=== PATIENT | male | born 1940 | race African-American/Black ===

== ENCOUNTER 2019-10-20 10:22 | Emergency (ER) | payer MEDICARE, MEDICAID ==
[~2019-10-20] VITALS: Ht 180.3 cm; Wt 95.0 kg
[~2019-10-20 10:22] MED LIST: ASPI-1079 PO; CARB200C; CARV25TA47 PO; GLIP5TAB12 PO; LISI-186; NIAC500T2 PO; SIMV10TA6
[2019-10-20 10:32] VITALS: BP 229/96
== END 2019-10-20 13:02 | disposition left against medical advice (07) ==
LOC: ER 10:51
DX: R07.89 Other chest pain (principal); I25.10 Atherosclerotic heart disease of native coronary artery without angina pectoris; E11.9 Type 2 diabetes mellitus without complications; Z95.1 Presence of aortocoronary bypass graft; Z79.82 Long term (current) use of aspirin; Z79.01 Long term (current) use of anticoagulants
CPT/HCPCS: 99281

== ENCOUNTER 2022-02-04 08:08 | Inpatient (IN) | payer MEDICARE, MEDICAID ==
[~2022-02-04] VITALS: Ht 175.3 cm; Wt 79.1 kg
[~2022-02-04 08:08] MED LIST changes: -ASPI-1079 PO; +LEVO250T58 MT; -LISI-186; +LOSA25TA3 MT; -NIAC500T2 PO; -SIMV10TA6; +SIMV10TA97
[2022-02-04 09:11] LABS: BASOPHILS % 0.8 % (0.0-2.0); EOSINOPHILS % 1.1 % (0.0-5.0); HEMATOCRIT. 34.6 % (42.0-52.0); HEMOGLOBIN. 11.3 g/dL (14.0-18.0); LYMPHOCYTES % 7.5 % (20.0-50.0); MEAN CORPUSCULAR HEMOGLOBIN 26.3 pg (28.0-32.0); MEAN CORPUSCULAR VOLUME 80.1 fL (80.0-94.0); MEAN PLATELET VOLUME 9.6 fl (7.4-10.4); MONOCYTES % 8.5 % (2.0-8.0); NEUTROPHILS % 82.1 % (40.0-76.0); PLATELET 333 x1000/uL (130-400); RED BLOOD CELL COUNT 4.31 mill/uL (4.7-6.1); RED CELL DISTRIBUTION WIDTH 14.1 % (11.6-14.6)
[2022-02-04] MEDS ORDERED: IBUPROFEN 400MG TABLET PO ONE (09:15)
[2022-02-04] MEDS ORDERED: ACETAMINOPHEN 325MG TABLET PO ONE (09:15)
[2022-02-04 09:17] LABS: CHLORIDE 102 mEq/L (98-107)
[2022-02-04] MEDS ORDERED: FUROSEMIDE 100MG/10ML VIAL IV STA (09:28)
[2022-02-04] MEDS ORDERED: INSULIN REGULAR (HUMULIN R) 300UNITS/3ML VIAL IV STA (09:28)
[2022-02-04] MEDS ORDERED: LACTATED RINGERS 1,000 ML IV STA (09:28)
[2022-02-04] MEDS ORDERED: ALBUTEROL (0.083%) 2.5MG/3ML NEB HHN ONE (09:30)
[2022-02-04] MEDS ORDERED: DEXTROSE 50% WATER 50ML SYRINGE IV ONE (09:30)
[2022-02-04] MEDS ORDERED: ALBUTEROL (0.083%) 2.5MG/3ML NEB ONE (10:55)
[2022-02-04 10:59] LABS: CLARITY URINE CLEAR (CLEAR); COLOR URINE RED (YELLOW); KETONES URINE NEGATIVE (NEGATIVE); LEUKOCYTE ESTERASE URINE 1+ (NEGATIVE); NITRITE URINE NEGATIVE (NEGATIVE); OCCULT BLOOD URINE 3+ (NEGATIVE); PROTEIN URINE 2+ (NEGATIVE); UROBILINOGEN URINE 0.2 E.U./dL (0.2-1.0)
[2022-02-04 11:34] LABS: INR 1.1; PROTHROMBIN TIME 11.5 sec (9.6-11.0)
[2022-02-04] MEDS ORDERED: MORPHINE SULFATE 4 MG/ML CPJ (NOT FOR IM USE) IV ONE (12:00)
[2022-02-04] MEDS ORDERED: SODIUM POLYSTYRENE SULFONATE 15 G/60 ML BOT PO ONE (12:00)
[2022-02-04] MEDS ORDERED: SODIUM BICARBONATE 8.4% 1 MEQ/ML 50ML SYR IV ONE (12:00)
[2022-02-04] MEDS ORDERED: CALCIUM GLUCONATE 1GM PREMIX 50 ML IV ONE (12:00)
[2022-02-04] MEDS ORDERED: LORAZEPAM 0.5MG TABLET PO PRN (13:45)
[2022-02-04] MEDS ORDERED: DIPHENHYDRAMINE 50MG/ML VIAL IV PRN (13:45)
[2022-02-04] MEDS ORDERED: ONDANSETRON HCL 4MG/2ML INJ IV PRN (13:45)
[2022-02-04] MEDS ORDERED: GUAIFENESIN 200MG/10ML SUGAR FREE UDC PO PRN (13:45)
[2022-02-04] MEDS ORDERED: NA PHOS,M-B/NA PHOS,DI-BA ENEMA 118ML PR PRN (13:45)
[2022-02-04] MEDS ORDERED: IPRATROPIUM/ALBUTEROL 0.5-3(2.5)MG/3ML NEB NEB PRN (13:45)
[2022-02-04] MEDS ORDERED: MAGNESIUM/ALUMINUM HYDROXIDE/SIMETHICONE 30ML UDC PO PRN (13:45)
[2022-02-04] MEDS ORDERED: ACETAMINOPHEN 650MG SUPP PR PRN (13:45)
[2022-02-04] MEDS ORDERED: ACETAMINOPHEN 325MG TABLET PO PRN (13:45)
[2022-02-04] MEDS ORDERED: DEXTROSE 50% WATER 50ML SYRINGE IV PRN (13:45)
[2022-02-04] MEDS ORDERED: DOCUSATE SODIUM 100MG CAPSULE PO PRN (13:45)
[2022-02-04] MEDS ORDERED: CEFTRIAXONE 1 G PREMIX 50 ML IV SCH (14:00)
[2022-02-04] MEDS ORDERED: NALOXONE HCL 0.4MG/ML VIAL IV PRN (14:00)
[2022-02-04] MEDS ORDERED: SODIUM BICARBONATE 8.4% 1 MEQ/ML 50ML SYR IV NR (15:45)
[2022-02-04] MEDS ORDERED: INSULIN REGULAR (HUMULIN R) UD 100 UNITS/ML SYR IV NR (16:00)
[2022-02-04] MEDS ORDERED: DEXTROSE 50% WATER 50ML SYRINGE IV NR (16:00)
[2022-02-04] MEDS ORDERED: SODIUM POLYSTYRENE SULFONATE 15 G/60 ML BOT PO NR (16:00)
[2022-02-04] MEDS ORDERED: CALCIUM CHLORIDE 1GM/10ML SYR IV NR (16:00)
[2022-02-04 16:28] VITALS: BP 156/72
[2022-02-04] MEDS ORDERED: ENOXAPARIN 80MG/0.8ML SYR SUBCUT SCH (16:30)
[2022-02-04] MEDS ORDERED: LISI40TA13 PO (16:55)
[2022-02-04 17:07] VITALS: BP 156/72
[2022-02-04] MEDS ORDERED: METF-415 PO (17:24)
[2022-02-04] MEDS ORDERED: METF-414 PO (17:24)
[2022-02-04] MEDS ORDERED: COR12 PO (17:25)
[2022-02-04] MEDS ORDERED: MORP15TA67 PO (17:26)
[2022-02-04] MEDS ORDERED: oxybutynin PO (17:28)
[2022-02-04] MEDS ORDERED: ATOR40TA70 PO (17:29)
[2022-02-04] MEDS ORDERED: NALO25TA4 PO (17:32)
[2022-02-04] MEDS ORDERED: HYDR-4009 PO (17:33)
[2022-02-04] MEDS: SODIUM CHLORIDE 0.9% 1,000 ML IV SCH (18:04)
[2022-02-04] MEDS: BLOOD SUGAR DIAGNOSTIC STRIP TEST SCH ×2 (18:07→20:33)
[2022-02-04] MEDS: INSULIN LISPRO 100 UNITS/ML SUBCUT SCH ×2 (18:07→20:34)
[2022-02-04 20:13] VITALS: BP 188/75
[2022-02-04] MEDS: FAMOTIDINE 20MG TABLET PO SCH (20:46)
[2022-02-04] MEDS: CLONIDINE 0.1MG TABLET PO PRN (20:46)
[2022-02-04] MEDS: HYDROCODONE/ACETAMINOPHEN 5/325MG TABLET PO PRN (22:26)
[2022-02-04 23:51] VITALS: BP 201/82
[2022-02-05] VITALS (21 sets, daily range): BP systolic 127–187; BP diastolic 55–84
[2022-02-05] MEDS ORDERED: METOPROLOL TARTRATE 50MG TABLET PO NR (01:15)
[2022-02-05] MEDS ORDERED: CLONIDINE 0.2MG TABLET PO NR (01:15)
[2022-02-05] MEDS: SODIUM CHLORIDE 0.9% 1,000 ML IV SCH ×2 (03:02→16:40)
[2022-02-05] MEDS: CLONIDINE 0.1MG TABLET PO PRN (03:21)
[2022-02-05] MEDS ORDERED: HYDRALAZINE 20MG/ML VIAL IV NR (04:30)
[2022-02-05] MEDS: BLOOD SUGAR DIAGNOSTIC STRIP TEST SCH ×4 (06:22→21:00)
[2022-02-05] MEDS: INSULIN LISPRO 100 UNITS/ML SUBCUT SCH ×4 (07:50→21:00)
[2022-02-05] MEDS: CEFTRIAXONE 1,000 MG in DEXTROSE 5% WATER 50 ML IV SCH (08:11)
[2022-02-05 08:27] LABS: BASOPHILS % 0.5 % (0.0-2.0); EOSINOPHILS % 1.2 % (0.0-5.0); HEMATOCRIT. 30.3 % (42.0-52.0); LYMPHOCYTES % 7.5 % (20.0-50.0); MEAN CORPUSCULAR HEMOGLOBIN 26.6 pg (28.0-32.0); MEAN CORPUSCULAR VOLUME 80.5 fL (80.0-94.0); MEAN PLATELET VOLUME 10.1 fl (7.4-10.4); NEUTROPHILS % 79.8 % (40.0-76.0); PLATELET 300 x1000/uL (130-400); RED BLOOD CELL COUNT 3.76 mill/uL (4.7-6.1); RED CELL DISTRIBUTION WIDTH 14.4 % (11.6-14.6)
[2022-02-05 08:36] LABS: CHLORIDE 104 mEq/L (98-107)
[2022-02-05] MEDS ORDERED: FENTANYL CITRATE/PF 50MCG/ML 2ML VIAL IV ONE (09:15)
[2022-02-05] MEDS ORDERED: FENTANYL CITRATE/PF 50MCG/ML 2ML VIAL IV SCH (09:30)
[2022-02-05] MEDS ORDERED: SODIUM POLYSTYRENE SULFONATE 15 G/60 ML BOT PO NR (12:00)
[2022-02-05] MEDS: CARVEDILOL 12.5MG TABLET PO SCH ×2 (12:40→21:00)
[2022-02-05] MEDS: FAMOTIDINE 20MG TABLET PO SCH (21:00)
[2022-02-06] VITALS (9 sets, daily range): BP systolic 148–188; BP diastolic 70–84
[2022-02-06] MEDS: CLONIDINE 0.1MG TABLET PO PRN ×4 (06:43→21:41)
[2022-02-06] MEDS: BLOOD SUGAR DIAGNOSTIC STRIP TEST SCH ×4 (06:43→21:00)
[2022-02-06] MEDS: SODIUM CHLORIDE 0.9% 1,000 ML IV SCH ×2 (06:43→21:44)
[2022-02-06] MEDS: INSULIN LISPRO 100 UNITS/ML SUBCUT SCH ×4 (07:50→21:00)
[2022-02-06] MEDS: CEFTRIAXONE 1,000 MG in DEXTROSE 5% WATER 50 ML IV SCH (08:07)
[2022-02-06] MEDS: CARVEDILOL 12.5MG TABLET PO SCH ×2 (08:07→21:40)
[2022-02-06 08:38] LABS: BASOPHILS % 0.6 % (0.0-2.0); EOSINOPHILS % 0.6 % (0.0-5.0); HEMATOCRIT. 30.6 % (42.0-52.0); HEMOGLOBIN. 10.1 g/dL (14.0-18.0); LYMPHOCYTES % 8.3 % (20.0-50.0); MEAN PLATELET VOLUME 9.9 fl (7.4-10.4); MONOCYTES % 8.7 % (2.0-8.0); NEUTROPHILS % 81.8 % (40.0-76.0); PLATELET 303 x1000/uL (130-400); RED BLOOD CELL COUNT 3.74 mill/uL (4.7-6.1); RED CELL DISTRIBUTION WIDTH 14.4 % (11.6-14.6)
[2022-02-06] MEDS: MORPHINE SULFATE 2 MG/ML CPJ (NOT FOR IM USE) IV PRN ×2 (10:41→21:41)
[2022-02-06] MEDS ORDERED: LIDOCAINE HCL 1% 20ML VIAL (Pyxis) INJ ONE (13:25)
[2022-02-06] MEDS: FAMOTIDINE 20MG TABLET PO SCH (21:40)
[2022-02-07] VITALS: BP 153/61
[2022-02-07 04:00] VITALS: BP 154/68
[2022-02-07] MEDS: BLOOD SUGAR DIAGNOSTIC STRIP TEST SCH ×4 (06:27→21:00)
[2022-02-07 06:53] LABS: BASOPHILS % 0.5 % (0.0-2.0); EOSINOPHILS % 1.8 % (0.0-5.0); HEMATOCRIT. 28.6 % (42.0-52.0); HEMOGLOBIN. 9.5 g/dL (14.0-18.0); LYMPHOCYTES % 9.2 % (20.0-50.0); MEAN CORPUSCULAR HEMOGLOBIN 27.2 pg (28.0-32.0); MEAN CORPUSCULAR VOLUME 82.1 fL (80.0-94.0); NEUTROPHILS % 79.5 % (40.0-76.0); PLATELET 295 x1000/uL (130-400); RED BLOOD CELL COUNT 3.49 mill/uL (4.7-6.1); RED CELL DISTRIBUTION WIDTH 14.4 % (11.6-14.6)
[2022-02-07] MEDS: INSULIN LISPRO 100 UNITS/ML SUBCUT SCH ×4 (07:31→21:00)
[2022-02-07 08:00] VITALS: BP 170/64
[2022-02-07] MEDS: CARVEDILOL 12.5MG TABLET PO SCH ×2 (09:49→20:24)
[2022-02-07] MEDS: CEFTRIAXONE 1,000 MG in DEXTROSE 5% WATER 50 ML IV SCH (10:46)
[2022-02-07] MEDS: MORPHINE SULFATE 2 MG/ML CPJ (NOT FOR IM USE) IV PRN ×2 (10:46→20:08)
[2022-02-07] MEDS: SODIUM CHLORIDE 0.9% 1,000 ML IV SCH ×2 (10:47→20:26)
[2022-02-07 12:00] VITALS: BP 163/66
[2022-02-07] MEDS: HYDROCODONE/ACETAMINOPHEN 5/325MG TABLET PO PRN ×2 (15:02→23:43)
[2022-02-07] MEDS ORDERED: LEVO250T58 MT (15:31)
[2022-02-07 16:00] VITALS: BP 148/61
[2022-02-07 20:00] VITALS: BP 158/88
[2022-02-07] MEDS: FAMOTIDINE 20MG TABLET PO SCH (20:24)
[2022-02-08] VITALS: BP 178/80
[2022-02-08] MEDS: CLONIDINE 0.1MG TABLET PO PRN ×2 (00:15→08:24)
[2022-02-08 04:00] VITALS: BP 156/82
[2022-02-08] MEDS: BLOOD SUGAR DIAGNOSTIC STRIP TEST SCH ×3 (06:22→17:39)
[2022-02-08] MEDS: INSULIN LISPRO 100 UNITS/ML SUBCUT SCH ×3 (06:22→17:56)
[2022-02-08 08:12] VITALS: BP 195/77
[2022-02-08] MEDS: CARVEDILOL 12.5MG TABLET PO SCH (08:24)
[2022-02-08] MEDS: CEFTRIAXONE 1,000 MG in DEXTROSE 5% WATER 50 ML IV SCH (08:25)
[2022-02-08 08:39] LABS: BASOPHILS % 0.5 % (0.0-2.0); HEMATOCRIT. 30.6 % (42.0-52.0); HEMOGLOBIN. 9.8 g/dL (14.0-18.0); LYMPHOCYTES % 8.4 % (20.0-50.0); MEAN CORPUSCULAR HEMOGLOBIN 26.3 pg (28.0-32.0); MEAN CORPUSCULAR VOLUME 82.3 fL (80.0-94.0); MEAN PLATELET VOLUME 10.2 fl (7.4-10.4); MONOCYTES % 8.9 % (2.0-8.0); NEUTROPHILS % 80.2 % (40.0-76.0); PLATELET 290 x1000/uL (130-400); RED BLOOD CELL COUNT 3.72 mill/uL (4.7-6.1); RED CELL DISTRIBUTION WIDTH 14.5 % (11.6-14.6)
[2022-02-08] MEDS ORDERED: HYDR-4135 MT (10:43)
[2022-02-08] MEDS ORDERED: HYDRALAZINE 20MG/ML VIAL IV SCH (10:45)
[2022-02-08] MEDS ORDERED: POTASSIUM CHLORIDE 20MEQ TABLET SR PO SCH (10:45)
[2022-02-08] MEDS: SODIUM CHLORIDE 0.9% 1,000 ML IV SCH (11:20)
[2022-02-08 11:33] VITALS: BP 178/75
[2022-02-08] MEDS: HYDROCODONE/ACETAMINOPHEN 5/325MG TABLET PO PRN (11:37)
[2022-02-08 16:00] VITALS: BP 131/49
[2022-02-08 18:29] VITALS: BP 131/49
== END 2022-02-08 19:30 | disposition home health service (06) | DRG 689 ==
LOC: ER 08:25 → ENRESERV 12:15 → 6WST 16:37
PROVIDERS: ADMIT Internal Medicine; ATTEND Internal Medicine
PROC: 0T9130Z Drainage of Left Kidney with Drainage Device, Percutaneous Approach (ICD-10-PCS; principal; 2022-02-05)
PROC: 0T9330Z Drainage of Right Kidney Pelvis with Drainage Device, Percutaneous Approach (ICD-10-PCS; 2022-02-05)
PROC: 06H03DZ Insertion of Intraluminal Device into Inferior Vena Cava, Percutaneous Approach (ICD-10-PCS; 2022-02-06)
DX: N13.6 Pyonephrosis (principal); E43 Unspecified severe protein-calorie malnutrition; I13.0 Hypertensive heart and chronic kidney disease with heart failure and stage 1 through stage 4 chronic kidney disease, or unspecified chronic kidney disease; I82.412 Acute embolism and thrombosis of left femoral vein; N17.9 Acute kidney failure, unspecified; E11.22 Type 2 diabetes mellitus with diabetic chronic kidney disease; N18.31 Chronic kidney disease, stage 3a; E87.6 Hypokalemia; D64.9 Anemia, unspecified; Z20.822 Contact with and (suspected) exposure to COVID-19; E87.5 Hyperkalemia; I25.10 Atherosclerotic heart disease of native coronary artery without angina pectoris; I50.9 Heart failure, unspecified; Z85.51 Personal history of malignant neoplasm of bladder; Z85.46 Personal history of malignant neoplasm of prostate; Z79.84 Long term (current) use of oral hypoglycemic drugs; Z79.899 Other long term (current) drug therapy; Z95.1 Presence of aortocoronary bypass graft; Z92.3 Personal history of irradiation; Z85.118 Personal history of other malignant neoplasm of bronchus and lung; R91.1 Solitary pulmonary nodule; R31.9 Hematuria, unspecified; Z68.25 Body mass index [BMI] 25.0-25.9, adult
CPT/HCPCS: 36415; 37191; 50432; 71045; 74176; 78582; 80048; 80053; 80061; 81003; 82962; 84132; 84153; 84443; 84484; 85025; 85379; 86850; 86900; 87426; 93005; 93306; 93970; 94644; 97162; 99152; 99153; 99285; A9558; C1729; C1769; C1880; C1893; J0360; J0610; J0696; J1644; J1815; J1940; J2270; J3010; J3490; J7060; L8514; A4315; G0103; G0500

== ENCOUNTER 2022-02-10 09:10 | Inpatient (IN) | payer MEDICARE, MEDICAID ==
[~2022-02-10] VITALS: Ht 175.3 cm; Wt 72.6 kg
[~2022-02-10 09:10] MED LIST changes: +ATOR40TA70 PO; -CARB200C; -CARV25TA47 PO; +COR12 PO; +HYDR-4009 PO; +HYDR-4135 MT; -LOSA25TA3 MT; +METF-414 PO; +MORP15TA67 PO; +NALO25TA4 PO; -SIMV10TA97; +oxybutynin PO
[2022-02-10] MEDS ORDERED: MORPHINE SULFATE 4 MG/ML CPJ (NOT FOR IM USE) IV STA (10:16)
[2022-02-10 10:59] LABS: CHLORIDE 113 mEq/L (98-107)
[2022-02-10 11:04] LABS: BASOPHILS % 0.3 % (0.0-2.0); EOSINOPHILS % 0.3 % (0.0-5.0); HEMATOCRIT. 28.6 % (42.0-52.0); HEMOGLOBIN. 9.4 g/dL (14.0-18.0); LYMPHOCYTES % 7.6 % (20.0-50.0); MEAN CORPUSCULAR VOLUME 82.2 fL (80.0-94.0); MEAN PLATELET VOLUME 9.9 fl (7.4-10.4); MONOCYTES % 9.2 % (2.0-8.0); NEUTROPHILS % 82.6 % (40.0-76.0); PLATELET 265 x1000/uL (130-400); RED BLOOD CELL COUNT 3.48 mill/uL (4.7-6.1); RED CELL DISTRIBUTION WIDTH 14.4 % (11.6-14.6)
[2022-02-10] MEDS ORDERED: MAGNESIUM/ALUMINUM HYDROXIDE/SIMETHICONE 30ML UDC PO PRN (13:00)
[2022-02-10] MEDS ORDERED: LORAZEPAM 0.5MG TABLET PO PRN (13:00)
[2022-02-10] MEDS ORDERED: NA PHOS,M-B/NA PHOS,DI-BA ENEMA 118ML PR PRN (13:00)
[2022-02-10] MEDS ORDERED: ONDANSETRON HCL 4MG/2ML INJ IV PRN (13:00)
[2022-02-10] MEDS ORDERED: IPRATROPIUM/ALBUTEROL 0.5-3(2.5)MG/3ML NEB NEB PRN (13:00)
[2022-02-10] MEDS ORDERED: GUAIFENESIN 200MG/10ML SUGAR FREE UDC PO PRN (13:00)
[2022-02-10] MEDS ORDERED: DIPHENHYDRAMINE 50MG/ML VIAL IV PRN (13:00)
[2022-02-10] MEDS ORDERED: ACETAMINOPHEN 650MG SUPP PR PRN (13:00)
[2022-02-10] MEDS: KCL 20MEQ/100ML PREMIX 100 ML IV SCH ×2 (13:18→16:59)
[2022-02-10] MEDS ORDERED: CEFTRIAXONE 1 G PREMIX 50 ML IV SCH (14:00)
[2022-02-10] MEDS: DEXT 5%/0.45% NACL 1000ML 1,000 ML IV SCH (14:32)
[2022-02-10] MEDS ORDERED: POTASSIUM CHLORIDE 20MEQ TABLET SR PO SCH (16:00)
[2022-02-10] MEDS ORDERED: MAGNESIUM 2 G PREMIX 50 ML IV NR (17:00)
[2022-02-10] MEDS: CLONIDINE 0.1MG TABLET PO PRN ×2 (19:05→20:52)
[2022-02-10] MEDS: MORPHINE SULFATE 2 MG/ML CPJ (NOT FOR IM USE) IV PRN (19:06)
[2022-02-10] MEDS ORDERED: NALOXONE HCL 0.4MG/ML VIAL IV PRN (20:45)
[2022-02-10 22:00] VITALS: BP 157/61
[2022-02-10] MEDS: FAMOTIDINE 20MG TABLET PO SCH (22:24)
[2022-02-10] MEDS: HYDROCODONE/ACETAMINOPHEN 10/325MG TABLET PO PRN (22:25)
[2022-02-11] VITALS: BP 148/55
[2022-02-11 04:00] VITALS: BP 152/50
[2022-02-11 04:03] LABS: CLARITY URINE CLEAR (CLEAR); COLOR URINE YELLOW (YELLOW); KETONES URINE NEGATIVE (NEGATIVE); LEUKOCYTE ESTERASE URINE 1+ (NEGATIVE); NITRITE URINE NEGATIVE (NEGATIVE); OCCULT BLOOD URINE 2+ (NEGATIVE); PROTEIN URINE 2+ (NEGATIVE); SPECIFIC GRAVITY URINE 1.015 (1.005-1.030); UROBILINOGEN URINE 0.2 E.U./dL (0.2-1.0)
[2022-02-11] MEDS: DEXT 5%/0.45% NACL 1000ML 1,000 ML IV SCH (06:15)
[2022-02-11] MEDS: HYDROCODONE/ACETAMINOPHEN 10/325MG TABLET PO PRN ×2 (06:24→10:42)
[2022-02-11 08:00] VITALS: BP 125/59
[2022-02-11] MEDS: CEFTRIAXONE 1,000 MG in DEXTROSE 5% WATER 50 ML IV SCH (10:42)
[2022-02-11 10:44] LABS: HEMATOCRIT. 31.6 % (42.0-52.0); HEMOGLOBIN. 10.2 g/dL (14.0-18.0); MEAN CORPUSCULAR HEMOGLOBIN 26.4 pg (28.0-32.0); MEAN CORPUSCULAR VOLUME 82.2 fL (80.0-94.0); MEAN PLATELET VOLUME 10.6 fl (7.4-10.4); PLATELET 340 x1000/uL (130-400); RED BLOOD CELL COUNT 3.85 mill/uL (4.7-6.1); RED CELL DISTRIBUTION WIDTH 14.6 % (11.6-14.6)
[2022-02-11 10:46] LABS: CHLORIDE 104 mEq/L (98-107)
[2022-02-11 12:00] VITALS: BP 129/62
[2022-02-11 15:53] LABS: PLATELET ESTIMATE NORMAL
[2022-02-11 16:00] VITALS: BP 158/62
[2022-02-11] MEDS: MORPHINE SULFATE 2 MG/ML CPJ (NOT FOR IM USE) IV PRN (16:58)
[2022-02-11 20:00] VITALS: BP 183/77
[2022-02-11] MEDS: FAMOTIDINE 20MG TABLET PO SCH (21:07)
[2022-02-11] MEDS: CLONIDINE 0.1MG TABLET PO PRN (21:08)
[2022-02-12] VITALS (7 sets, daily range): BP systolic 128–162; BP diastolic 49–79
[2022-02-12] MEDS: MORPHINE SULFATE 4 MG/ML CPJ (NOT FOR IM USE) IV PRN ×3 (01:03→11:25)
[2022-02-12] MEDS: DEXT 5%/0.45% NACL 1000ML 1,000 ML IV SCH (04:28)
[2022-02-12] MEDS: CLONIDINE 0.1MG TABLET PO PRN (05:36)
[2022-02-12 07:19] LABS: BASOPHILS % 0.4 % (0.0-2.0); EOSINOPHILS % 1.3 % (0.0-5.0); HEMATOCRIT. 29.5 % (42.0-52.0); HEMOGLOBIN. 9.7 g/dL (14.0-18.0); LYMPHOCYTES % 8.2 % (20.0-50.0); MEAN CORPUSCULAR HEMOGLOBIN 26.7 pg (28.0-32.0); MEAN CORPUSCULAR VOLUME 81.3 fL (80.0-94.0); MEAN PLATELET VOLUME 10.5 fl (7.4-10.4); MONOCYTES % 9.8 % (2.0-8.0); NEUTROPHILS % 80.3 % (40.0-76.0); PLATELET 309 x1000/uL (130-400); RED BLOOD CELL COUNT 3.63 mill/uL (4.7-6.1); RED CELL DISTRIBUTION WIDTH 14.7 % (11.6-14.6)
[2022-02-12] MEDS: CEFTRIAXONE 1,000 MG in DEXTROSE 5% WATER 50 ML IV SCH (11:25)
[2022-02-12] MEDS: MORPHINE SULFATE 15MG TABLET SR PO SCH ×2 (13:55→21:21)
[2022-02-12] MEDS: GABAPENTIN 100MG CAPSULE PO SCH ×2 (13:55→21:20)
[2022-02-12] MEDS: FAMOTIDINE 20MG TABLET PO SCH (21:20)
[2022-02-13] VITALS: BP 132/50
[2022-02-13] MEDS: DEXT 5%/0.45% NACL 1000ML 1,000 ML IV SCH ×2 (00:35→08:29)
[2022-02-13 03:59] VITALS: BP 147/59
[2022-02-13] MEDS: MORPHINE SULFATE 15MG TABLET SR PO SCH ×3 (05:12→22:07)
[2022-02-13] MEDS: GABAPENTIN 100MG CAPSULE PO SCH ×3 (05:13→22:07)
[2022-02-13 08:00] VITALS: BP 138/76
[2022-02-13] MEDS: MORPHINE SULFATE 4 MG/ML CPJ (NOT FOR IM USE) IV PRN (08:33)
[2022-02-13] MEDS: CEFTRIAXONE 1,000 MG in DEXTROSE 5% WATER 50 ML IV SCH (11:34)
[2022-02-13 12:00] VITALS: BP 119/59
[2022-02-13] MEDS: HYDROCODONE/ACETAMINOPHEN 10/325MG TABLET PO PRN (12:10)
[2022-02-13] MEDS ORDERED: LACTULOSE 20G/30ML UDC PO NR (15:45)
[2022-02-13 16:00] VITALS: BP 143/68
[2022-02-13 20:00] VITALS: BP 169/73
[2022-02-13] MEDS: FAMOTIDINE 20MG TABLET PO SCH (22:07)
[2022-02-13] MEDS: CLONIDINE 0.1MG TABLET PO PRN (22:13)
[2022-02-14] MEDS: DEXT 5%/0.45% NACL 1000ML 1,000 ML IV SCH (03:57)
[2022-02-14] MEDS: CLONIDINE 0.1MG TABLET PO PRN (04:48)
[2022-02-14] MEDS: GABAPENTIN 100MG CAPSULE PO SCH ×3 (06:15→21:05)
[2022-02-14] MEDS: MORPHINE SULFATE 15MG TABLET SR PO SCH ×3 (06:17→21:07)
[2022-02-14 08:00] VITALS: BP 125/60
[2022-02-14] MEDS: CEFTRIAXONE 1,000 MG in DEXTROSE 5% WATER 50 ML IV SCH (10:29)
[2022-02-14 12:00] VITALS: BP 134/56
[2022-02-14] MEDS: HYDROCODONE/ACETAMINOPHEN 10/325MG TABLET PO PRN ×2 (12:49→17:25)
[2022-02-14] MEDS ORDERED: LACTULOSE 20G/30ML UDC PO NR (13:00)
[2022-02-14] MEDS ORDERED: LINEZOLID 600MG TABLET PO SCH (14:00)
[2022-02-14 16:00] VITALS: BP 119/53
[2022-02-14 20:00] VITALS: BP 123/68
[2022-02-14] MEDS: FAMOTIDINE 20MG TABLET PO SCH (21:05)
[2022-02-14] MEDS: LINEZOLID 600MG TABLET PO SCH (21:06)
[2022-02-14 21:35] LABS: HEMATOCRIT 28.4 % (42.0-52.0); HEMOGLOBIN 9.2 g/dL (14.0-18.0); MEAN CORPUSCULAR HEMOGLOBIN 26.7 pg (28.0-32.0); MEAN CORPUSCULAR VOLUME 82.5 fL (80.0-94.0); PLATELET 259 x1000/uL (130-400); RED BLOOD CELL COUNT 3.44 mill/uL (4.7-6.1); RED CELL DISTRIBUTION WIDTH 14.3 % (11.6-14.6)
[2022-02-14 21:43] LABS: CHLORIDE 103 mEq/L (98-107)
[2022-02-15] VITALS: BP_SYST 125; BP_SYST 153; BP_DIAS 59; BP_DIAS 69
[2022-02-15] MEDS: HYDROCODONE/ACETAMINOPHEN 10/325MG TABLET PO PRN (01:38)
[2022-02-15] MEDS: MORPHINE SULFATE 4 MG/ML CPJ (NOT FOR IM USE) IV PRN (03:08)
[2022-02-15] MEDS: CLONIDINE 0.1MG TABLET PO PRN (03:08)
[2022-02-15 03:46] VITALS: BP 184/87
[2022-02-15] MEDS: MORPHINE SULFATE 15MG TABLET SR PO SCH ×3 (06:15→22:00)
[2022-02-15] MEDS: GABAPENTIN 100MG CAPSULE PO SCH ×3 (06:15→22:09)
[2022-02-15 08:00] VITALS: BP 154/97
[2022-02-15] MEDS: LINEZOLID 600MG TABLET PO SCH ×2 (08:59→21:03)
[2022-02-15] MEDS: ACETAMINOPHEN 325MG TABLET PO PRN ×2 (08:59→10:02)
[2022-02-15 12:00] VITALS: BP 114/61
[2022-02-15 13:08] LABS: HEMOGLOBIN. 9.1 g/dL (14.0-18.0); MEAN CORPUSCULAR HEMOGLOBIN 26.6 pg (28.0-32.0); MEAN CORPUSCULAR VOLUME 81.7 fL (80.0-94.0); MEAN PLATELET VOLUME 10.5 fl (7.4-10.4); PLATELET 269 x1000/uL (130-400); RED BLOOD CELL COUNT 3.43 mill/uL (4.7-6.1); RED CELL DISTRIBUTION WIDTH 14.3 % (11.6-14.6)
[2022-02-15 13:13] LABS: CHLORIDE 102 mEq/L (98-107)
[2022-02-15 14:08] LABS: PLATELET ESTIMATE NORMAL
[2022-02-15 16:00] VITALS: BP 114/58
[2022-02-15 20:00] VITALS: BP 141/52
[2022-02-15] MEDS: FAMOTIDINE 20MG TABLET PO SCH (21:03)
[2022-02-15] MEDS: PIPERACILLIN/TAZOBACTAM 3.375 G in DEXTROSE 5% WATER 50 ML IV SCH (22:10)
[2022-02-16] VITALS: BP 129/59
[2022-02-16 04:00] VITALS: BP 141/58
[2022-02-16] MEDS: MORPHINE SULFATE 15MG TABLET SR PO SCH ×3 (06:00→21:00)
[2022-02-16] MEDS: GABAPENTIN 100MG CAPSULE PO SCH ×3 (06:00→21:00)
[2022-02-16 06:11] LABS: BASOPHILS % 0.4 % (0.0-2.0); EOSINOPHILS % 1.3 % (0.0-5.0); HEMATOCRIT. 27.7 % (42.0-52.0); HEMOGLOBIN. 9.1 g/dL (14.0-18.0); LYMPHOCYTES % 7.9 % (20.0-50.0); MEAN CORPUSCULAR HEMOGLOBIN 26.6 pg (28.0-32.0); MEAN CORPUSCULAR VOLUME 80.8 fL (80.0-94.0); MEAN PLATELET VOLUME 10.9 fl (7.4-10.4); MONOCYTES % 8.5 % (2.0-8.0); NEUTROPHILS % 81.9 % (40.0-76.0); PLATELET 285 x1000/uL (130-400); RED BLOOD CELL COUNT 3.43 mill/uL (4.7-6.1); RED CELL DISTRIBUTION WIDTH 14.6 % (11.6-14.6)
[2022-02-16 06:16] LABS: CHLORIDE 102 mEq/L (98-107)
[2022-02-16] MEDS: PIPERACILLIN/TAZOBACTAM 3.375 G in DEXTROSE 5% WATER 50 ML IV SCH ×3 (07:05→21:00)
[2022-02-16] MEDS: MORPHINE SULFATE 4 MG/ML CPJ (NOT FOR IM USE) IV PRN ×2 (07:10→12:29)
[2022-02-16 08:00] VITALS: BP 139/67
[2022-02-16] MEDS: LINEZOLID 600MG TABLET PO SCH ×2 (08:49→21:00)
[2022-02-16] MEDS ORDERED: NALOXONE HCL 0.4MG/ML VIAL IV PRN (09:45)
[2022-02-16 12:00] VITALS: BP 148/73
[2022-02-16] MEDS: CLONIDINE 0.1MG TABLET PO PRN (14:45)
[2022-02-16 16:00] VITALS: BP 168/98
[2022-02-16] MEDS: HYDROCODONE/ACETAMINOPHEN 10/325MG TABLET PO PRN (16:43)
[2022-02-16 20:00] VITALS: BP 118/58
[2022-02-16] MEDS: FAMOTIDINE 20MG TABLET PO SCH (21:00)
[2022-02-17] VITALS: BP 114/55
[2022-02-17 04:00] VITALS: BP 134/57
[2022-02-17] MEDS: PIPERACILLIN/TAZOBACTAM 3.375 G in DEXTROSE 5% WATER 50 ML IV SCH ×3 (05:00→21:34)
[2022-02-17] MEDS: GABAPENTIN 100MG CAPSULE PO SCH ×3 (05:00→21:34)
[2022-02-17] MEDS: MORPHINE SULFATE 15MG TABLET SR PO SCH ×3 (05:01→21:35)
[2022-02-17 07:34] LABS: BASOPHILS % 0.8 % (0.0-2.0); EOSINOPHILS % 1.8 % (0.0-5.0); HEMATOCRIT. 25.9 % (42.0-52.0); HEMOGLOBIN. 8.8 g/dL (14.0-18.0); LYMPHOCYTES % 10.1 % (20.0-50.0); MEAN CORPUSCULAR HEMOGLOBIN 27.7 pg (28.0-32.0); MEAN CORPUSCULAR VOLUME 81.3 fL (80.0-94.0); MEAN PLATELET VOLUME 10.9 fl (7.4-10.4); MONOCYTES % 10.5 % (2.0-8.0); NEUTROPHILS % 76.8 % (40.0-76.0); PLATELET 268 x1000/uL (130-400); RED BLOOD CELL COUNT 3.19 mill/uL (4.7-6.1); RED CELL DISTRIBUTION WIDTH 14.4 % (11.6-14.6)
[2022-02-17 08:00] VITALS: BP 145/60
[2022-02-17 08:01] LABS: CHLORIDE 102 mEq/L (98-107)
[2022-02-17] MEDS: LINEZOLID 600MG TABLET PO SCH ×2 (08:51→21:34)
[2022-02-17] MEDS: MORPHINE SULFATE 4 MG/ML CPJ (NOT FOR IM USE) IV PRN (09:18)
[2022-02-17 12:00] VITALS: BP 140/52
[2022-02-17] MEDS ORDERED: LACTULOSE 20G/30ML UDC PO NR (15:30)
[2022-02-17 16:00] VITALS: BP 147/63
[2022-02-17] MEDS: HYDROCODONE/ACETAMINOPHEN 10/325MG TABLET PO PRN (17:42)
[2022-02-17 20:00] VITALS: BP 144/84
[2022-02-17] MEDS: FAMOTIDINE 20MG TABLET PO SCH (21:34)
[2022-02-18 00:01] VITALS: BP 111/67
[2022-02-18] MEDS: HYDROCODONE/ACETAMINOPHEN 10/325MG TABLET PO PRN ×2 (03:37→18:22)
[2022-02-18 04:00] VITALS: BP 156/63
[2022-02-18] MEDS: GABAPENTIN 100MG CAPSULE PO SCH ×3 (05:04→22:20)
[2022-02-18] MEDS: PIPERACILLIN/TAZOBACTAM 3.375 G in DEXTROSE 5% WATER 50 ML IV SCH ×3 (05:04→22:21)
[2022-02-18] MEDS: MORPHINE SULFATE 15MG TABLET SR PO SCH ×3 (05:05→22:20)
[2022-02-18 08:00] VITALS: BP 157/61
[2022-02-18] MEDS: LINEZOLID 600MG TABLET PO SCH ×2 (09:10→22:54)
[2022-02-18 12:00] VITALS: BP 151/60
[2022-02-18 16:00] VITALS: BP 154/70
[2022-02-18 20:00] VITALS: BP 105/57
[2022-02-18] MEDS: FAMOTIDINE 20MG TABLET PO SCH (21:18)
[2022-02-19 00:05] VITALS: BP 135/61
[2022-02-19 04:00] VITALS: BP 138/57
[2022-02-19] MEDS: PIPERACILLIN/TAZOBACTAM 3.375 G in DEXTROSE 5% WATER 50 ML IV SCH ×3 (05:09→21:29)
[2022-02-19] MEDS: GABAPENTIN 100MG CAPSULE PO SCH ×3 (05:09→21:29)
[2022-02-19] MEDS: MORPHINE SULFATE 15MG TABLET SR PO SCH ×3 (05:09→21:30)
[2022-02-19 08:00] VITALS: BP_SYST 153; BP_SYST 159; BP_DIAS 61; BP_DIAS 64
[2022-02-19] MEDS: LINEZOLID 600MG TABLET PO SCH ×2 (09:04→21:29)
[2022-02-19] MEDS: MORPHINE SULFATE 4 MG/ML CPJ (NOT FOR IM USE) IV PRN ×2 (09:11→17:33)
[2022-02-19 16:10] VITALS: BP 162/70
[2022-02-19 20:00] VITALS: BP 156/64
[2022-02-19] MEDS: FAMOTIDINE 20MG TABLET PO SCH (21:29)
[2022-02-20] VITALS: BP 144/63
[2022-02-20 04:00] VITALS: BP 149/66
[2022-02-20] MEDS: PIPERACILLIN/TAZOBACTAM 3.375 G in DEXTROSE 5% WATER 50 ML IV SCH ×3 (05:23→23:02)
[2022-02-20] MEDS: MORPHINE SULFATE 15MG TABLET SR PO SCH ×3 (05:24→23:02)
[2022-02-20] MEDS: GABAPENTIN 100MG CAPSULE PO SCH ×3 (05:24→23:02)
[2022-02-20 07:03] LABS: HEMATOCRIT 27.9 % (42.0-52.0); HEMOGLOBIN 9.4 g/dL (14.0-18.0); MEAN CORPUSCULAR HEMOGLOBIN 27.2 pg (28.0-32.0); PLATELET 303 x1000/uL (130-400); RED BLOOD CELL COUNT 3.44 mill/uL (4.7-6.1); RED CELL DISTRIBUTION WIDTH 14.4 % (11.6-14.6)
[2022-02-20 08:00] VITALS: BP 155/75
[2022-02-20] MEDS: MORPHINE SULFATE 4 MG/ML CPJ (NOT FOR IM USE) IV PRN (08:04)
[2022-02-20 08:05] LABS: CHLORIDE 102 mEq/L (98-107)
[2022-02-20 12:00] VITALS: BP 128/58
[2022-02-20 16:13] VITALS: BP 156/76
[2022-02-20] MEDS: HYDROCODONE/ACETAMINOPHEN 10/325MG TABLET PO PRN (16:52)
[2022-02-20 20:00] VITALS: BP 159/64
[2022-02-20] MEDS: FAMOTIDINE 20MG TABLET PO SCH (23:02)
[2022-02-21] VITALS: BP 145/67
[2022-02-21 04:00] VITALS: BP 174/76
[2022-02-21] MEDS: GABAPENTIN 100MG CAPSULE PO SCH ×3 (07:04→21:46)
[2022-02-21] MEDS: MORPHINE SULFATE 15MG TABLET SR PO SCH ×4 (07:04→21:48)
[2022-02-21 08:00] VITALS: BP 165/77
[2022-02-21] MEDS: HYDROCODONE/ACETAMINOPHEN 10/325MG TABLET PO PRN (08:57)
[2022-02-21 12:00] VITALS: BP 122/55
[2022-02-21 16:00] VITALS: BP 159/87
[2022-02-21 20:00] VITALS: BP 168/77
[2022-02-21] MEDS: FAMOTIDINE 20MG TABLET PO SCH (21:46)
[2022-02-21] MEDS: CLONIDINE 0.1MG TABLET PO PRN (21:52)
[2022-02-22] VITALS (7 sets, daily range): BP systolic 132–170; BP diastolic 62–80
[2022-02-22] MEDS: GABAPENTIN 100MG CAPSULE PO SCH ×3 (05:17→21:53)
[2022-02-22] MEDS: HYDROCODONE/ACETAMINOPHEN 10/325MG TABLET PO PRN ×3 (05:31→23:32)
[2022-02-22] MEDS: CLONIDINE 0.1MG TABLET PO PRN ×2 (05:53→23:32)
[2022-02-22] MEDS: MORPHINE SULFATE 15MG TABLET SR PO SCH ×2 (13:44→21:53)
[2022-02-22 16:32] LABS: BASOPHILS % 1.4 % (0.0-2.0); EOSINOPHILS % 1.8 % (0.0-5.0); HEMATOCRIT. 29.2 % (42.0-52.0); HEMOGLOBIN. 9.8 g/dL (14.0-18.0); LYMPHOCYTES % 12.2 % (20.0-50.0); MEAN CORPUSCULAR HEMOGLOBIN 27.1 pg (28.0-32.0); MEAN CORPUSCULAR VOLUME 80.4 fL (80.0-94.0); MEAN PLATELET VOLUME 9.7 fl (7.4-10.4); MONOCYTES % 8.7 % (2.0-8.0); NEUTROPHILS % 75.9 % (40.0-76.0); PLATELET 293 x1000/uL (130-400); RED BLOOD CELL COUNT 3.63 mill/uL (4.7-6.1); RED CELL DISTRIBUTION WIDTH 14.8 % (11.6-14.6)
[2022-02-22 17:00] LABS: CHLORIDE 100 mEq/L (98-107)
[2022-02-22] MEDS: METRONIDAZOLE 500MG TABLET PO SCH (21:49)
[2022-02-22] MEDS: FAMOTIDINE 20MG TABLET PO SCH (21:49)
[2022-02-23] MEDS: MORPHINE SULFATE 4 MG/ML CPJ (NOT FOR IM USE) IV PRN (02:28)
[2022-02-23 04:00] VITALS: BP 152/75
[2022-02-23] MEDS: METRONIDAZOLE 500MG TABLET PO SCH ×2 (06:59→14:56)
[2022-02-23] MEDS: MORPHINE SULFATE 15MG TABLET SR PO SCH ×2 (07:00→14:56)
[2022-02-23] MEDS: GABAPENTIN 100MG CAPSULE PO SCH ×2 (07:01→14:56)
[2022-02-23 08:00] VITALS: BP 116/77
[2022-02-23] MEDS: ACETAMINOPHEN 325MG TABLET PO PRN ×2 (09:01→18:03)
[2022-02-23 12:00] VITALS: BP 142/76
[2022-02-23] MEDS ORDERED: SODIUM CHLORIDE 0.9% 1,000 ML IV SCH (15:15)
[2022-02-23 16:00] VITALS: BP 150/71
[2022-02-23] MEDS ORDERED: VANCOMYCIN 1000MG/20ML ORAL SOLN PO SCH (18:00)
== END 2022-02-23 20:17 | DRG 947 ==
LOC: ER 09:34 → EDBEDREQ 14:43 → MICUSO 15:07 → 7EST 20:29 → 6EST 02-20 10:37
PROVIDERS: ADMIT Internal Medicine; ATTEND Internal Medicine
DX: G89.3 Neoplasm related pain (acute) (chronic) (principal); E43 Unspecified severe protein-calorie malnutrition; N17.9 Acute kidney failure, unspecified; N39.0 Urinary tract infection, site not specified; I11.0 Hypertensive heart disease with heart failure; D64.9 Anemia, unspecified; E86.0 Dehydration; D72.829 Elevated white blood cell count, unspecified; E11.9 Type 2 diabetes mellitus without complications; R74.01 Elevation of levels of liver transaminase levels; Z20.822 Contact with and (suspected) exposure to COVID-19; E87.6 Hypokalemia; Z85.51 Personal history of malignant neoplasm of bladder; Z95.828 Presence of other vascular implants and grafts; Z95.1 Presence of aortocoronary bypass graft; Z79.84 Long term (current) use of oral hypoglycemic drugs; Z79.899 Other long term (current) drug therapy; Z85.46 Personal history of malignant neoplasm of prostate; Z79.2 Long term (current) use of antibiotics; Z85.118 Personal history of other malignant neoplasm of bronchus and lung; Z68.23 Body mass index [BMI] 23.0-23.9, adult; Z96.0 Presence of urogenital implants
CPT/HCPCS: 36415; 71045; 74018; 74176; 76700; 80048; 80053; 81003; 83605; 83735; 83880; 84132; 84145; 84443; 84484; 85025; 85027; 87077; 87186; 87426; 93005; 97116; 97162; 99285; J0696; J2270; J2543; J3370; J3475; J3480; J7060

== ENCOUNTER 2022-03-23 14:57 | Inpatient (IN) | payer MEDICARE, MEDICAID ==
[~2022-03-23] VITALS: Ht 175.3 cm; Wt 62.6 kg
[~2022-03-23 14:57] MED LIST changes: +LEVO250T43 MT; -LEVO250T58 MT
[2022-03-23] MEDS ORDERED: CEFTRIAXONE 1 G PREMIX 50 ML IV ONE (16:15)
[2022-03-23] MEDS ORDERED: SODIUM CHLORIDE 0.9% 1000ML BAG (SEPSIS BOLUS) IV ONE (16:15)
[2022-03-23 17:13] LABS: HEMATOCRIT. 29.2 % (42.0-52.0); HEMOGLOBIN. 9.2 g/dL (14.0-18.0); MEAN CORPUSCULAR HEMOGLOBIN 25.8 pg (28.0-32.0); MEAN CORPUSCULAR VOLUME 81.7 fL (80.0-94.0); MEAN PLATELET VOLUME 9.8 fl (7.4-10.4); PLATELET 386 x1000/uL (130-400); RED BLOOD CELL COUNT 3.57 mill/uL (4.7-6.1); RED CELL DISTRIBUTION WIDTH 16.8 % (11.6-14.6)
[2022-03-23 17:17] LABS: CLARITY URINE TURBID (CLEAR); COLOR URINE DARK YELLOW (YELLOW); KETONES URINE NEGATIVE (NEGATIVE); LEUKOCYTE ESTERASE URINE 3+ (NEGATIVE); NITRITE URINE NEGATIVE (NEGATIVE); OCCULT BLOOD URINE 3+ (NEGATIVE); PROTEIN URINE 2+ (NEGATIVE); SPECIFIC GRAVITY URINE 1.014 (1.005-1.030)
[2022-03-23 17:27] LABS: CHLORIDE 95 mEq/L (98-107)
[2022-03-23 17:28] LABS: PLATELET ESTIMATE NORMAL
[2022-03-23] MEDS ORDERED: PIPERACILLIN/TAZ 3.375G PREMIX 50 ML IV ONE (18:00)
[2022-03-23] MEDS ORDERED: LINEZOLID 600 MG PREMIX 300 ML IV SCH (18:00)
[2022-03-23] MEDS ORDERED: ACETAMINOPHEN 500MG TABLET PO NR (18:00)
[2022-03-23] MEDS ORDERED: IBUPROFEN 400MG TABLET PO NR (20:45)
[2022-03-24] VITALS (16 sets, daily range): BP systolic 89–133; BP diastolic 47–64
[2022-03-24] MEDS ORDERED: CEFTRIAXONE 1 G PREMIX 50 ML IV SCH (10:45)
[2022-03-24] MEDS ORDERED: DIPHENHYDRAMINE 50MG/ML VIAL IV PRN (10:45)
[2022-03-24] MEDS ORDERED: IPRATROPIUM/ALBUTEROL 0.5-3(2.5)MG/3ML NEB NEB PRN (10:45)
[2022-03-24] MEDS ORDERED: ACETAMINOPHEN 650MG SUPP PR PRN (10:45)
[2022-03-24] MEDS ORDERED: ONDANSETRON HCL 4MG/2ML INJ IV PRN (10:45)
[2022-03-24] MEDS ORDERED: NALOXONE HCL 0.4MG/ML VIAL IV PRN (11:15)
[2022-03-24 12:11] LABS: HEMATOCRIT. 30.8 % (42.0-52.0); HEMOGLOBIN. 9.8 g/dL (14.0-18.0); MEAN CORPUSCULAR HEMOGLOBIN 25.5 pg (28.0-32.0); MEAN CORPUSCULAR VOLUME 80.5 fL (80.0-94.0); MEAN PLATELET VOLUME 10.1 fl (7.4-10.4); PLATELET 371 x1000/uL (130-400); RED BLOOD CELL COUNT 3.83 mill/uL (4.7-6.1); RED CELL DISTRIBUTION WIDTH 17.2 % (11.6-14.6)
[2022-03-24 12:13] LABS: INR 1.2; PROTHROMBIN TIME 12.7 sec (9.6-11.0)
[2022-03-24 12:17] LABS: CHLORIDE 104 mEq/L (98-107)
[2022-03-24] MEDS ORDERED: LIDOCAINE HCL/PF 1% 10 MG/ML 5ML VIAL ONE (12:40)
[2022-03-24] MEDS ORDERED: IOHEXOL-300 50 ML BOTTLE IV ONE (12:41)
[2022-03-24 12:53] LABS: PLATELET ESTIMATE NORMAL
[2022-03-24] MEDS ORDERED: FENTANYL CITRATE/PF 50MCG/ML 2ML VIAL ONE (14:00)
[2022-03-24] MEDS ORDERED: FENTANYL CITRATE/PF 50MCG/ML 2ML VIAL IV ONE (14:45)
[2022-03-24] MEDS ORDERED: DEXTROSE 50% WATER 50ML SYRINGE IV PRN (15:00)
[2022-03-24] MEDS ORDERED: SODIUM POLYSTYRENE SULFONATE 15 G/60 ML BOT PO NR (15:00)
[2022-03-24] MEDS: CEFTRIAXONE 1,000 MG in DEXTROSE 5% WATER 50 ML IV SCH (15:08)
[2022-03-24] MEDS: BLOOD SUGAR DIAGNOSTIC STRIP TEST SCH ×2 (17:40→21:10)
[2022-03-24] MEDS: LINEZOLID 600 MG PREMIX 300 ML IV SCH (18:35)
[2022-03-24] MEDS: DEXT 5%/0.9% NACL 1,000 ML IV SCH (18:36)
[2022-03-24] MEDS: INSULIN LISPRO 100 UNITS/ML SUBCUT SCH (21:00)
[2022-03-24] MEDS: FAMOTIDINE 20MG TABLET PO SCH (21:18)
[2022-03-25 00:04] VITALS: BP 149/89
[2022-03-25 04:00] VITALS: BP 117/60
[2022-03-25] MEDS: LINEZOLID 600 MG PREMIX 300 ML IV SCH ×2 (04:43→16:29)
[2022-03-25] MEDS: BLOOD SUGAR DIAGNOSTIC STRIP TEST SCH ×4 (06:10→21:00)
[2022-03-25] MEDS: DEXT 5%/0.9% NACL 1,000 ML IV SCH ×2 (06:14→17:44)
[2022-03-25 06:15] LABS: MEAN CORPUSCULAR HEMOGLOBIN 25.4 pg (28.0-32.0); MEAN CORPUSCULAR VOLUME 81.2 fL (80.0-94.0); MEAN PLATELET VOLUME 10.4 fl (7.4-10.4); PLATELET 273 x1000/uL (130-400); RED BLOOD CELL COUNT 2.98 mill/uL (4.7-6.1); RED CELL DISTRIBUTION WIDTH 16.8 % (11.6-14.6)
[2022-03-25 06:40] LABS: CHLORIDE 103 mEq/L (98-107)
[2022-03-25 06:53] LABS: HEMOGLOBIN. 7.6 g/dL (14.0-18.0)
[2022-03-25 06:54] LABS: HEMATOCRIT. 24.2 % (42.0-52.0)
[2022-03-25 08:00] VITALS: BP 105/60
[2022-03-25] MEDS: INSULIN LISPRO 100 UNITS/ML SUBCUT SCH ×4 (08:10→21:00)
[2022-03-25 12:00] VITALS: BP 126/58
[2022-03-25 12:57] LABS: PLATELET ESTIMATE NORMAL
[2022-03-25] MEDS: CEFTRIAXONE 1,000 MG in DEXTROSE 5% WATER 50 ML IV SCH (13:03)
[2022-03-25] MEDS: MEROPENEM 1000MG in NORMAL SALINE 100ML IV SCH (15:44)
[2022-03-25 16:00] VITALS: BP 120/60
[2022-03-25] MEDS ORDERED: MEROPENEM 1,000 MG in SODIUM CHLORIDE 0.9% 100 ML IV SCH (16:00)
[2022-03-25 20:00] VITALS: BP 109/57
[2022-03-25] MEDS: FAMOTIDINE 20MG TABLET PO SCH (20:59)
[2022-03-26] VITALS: BP 119/67
[2022-03-26] MEDS: MEROPENEM 1000MG in NORMAL SALINE 100ML IV SCH ×2 (03:47→16:56)
[2022-03-26 04:00] VITALS: BP 131/57
[2022-03-26] MEDS: LINEZOLID 600 MG PREMIX 300 ML IV SCH (04:48)
[2022-03-26] MEDS: BLOOD SUGAR DIAGNOSTIC STRIP TEST SCH ×4 (07:23→21:08)
[2022-03-26 08:00] VITALS: BP 114/60
[2022-03-26] MEDS ORDERED: LIDOCAINE HCL/PF 1% 10 MG/ML 5ML VIAL ONE (08:02)
[2022-03-26] MEDS: INSULIN LISPRO 100 UNITS/ML SUBCUT SCH ×4 (08:10→21:19)
[2022-03-26] MEDS: DEXT 5%/0.9% NACL 1,000 ML IV SCH ×2 (09:58→21:50)
[2022-03-26 12:00] VITALS: BP 129/59
[2022-03-26 16:00] VITALS: BP 136/64
[2022-03-26] MEDS: MORPHINE SULFATE 2 MG/ML CPJ (NOT FOR IM USE) IV PRN (16:57)
[2022-03-26 20:00] VITALS: BP 99/48
[2022-03-26] MEDS: FAMOTIDINE 20MG TABLET PO SCH (21:18)
[2022-03-27] VITALS: BP 102/70
[2022-03-27 04:00] VITALS: BP 118/76
[2022-03-27] MEDS: MEROPENEM 1000MG in NORMAL SALINE 100ML IV SCH ×2 (04:13→18:53)
[2022-03-27] MEDS: MORPHINE SULFATE 2 MG/ML CPJ (NOT FOR IM USE) IV PRN ×2 (04:21→22:16)
[2022-03-27] MEDS: BLOOD SUGAR DIAGNOSTIC STRIP TEST SCH ×4 (06:57→20:57)
[2022-03-27] MEDS: INSULIN LISPRO 100 UNITS/ML SUBCUT SCH ×4 (06:58→20:57)
[2022-03-27 08:00] VITALS: BP 149/74
[2022-03-27] MEDS: DEXT 5%/0.9% NACL 1,000 ML IV SCH ×2 (09:36→23:00)
[2022-03-27 12:00] VITALS: BP 134/68
[2022-03-27 16:00] VITALS: BP 137/51
[2022-03-27 20:00] VITALS: BP 167/77
[2022-03-27] MEDS: FAMOTIDINE 20MG TABLET PO SCH (20:52)
[2022-03-28] VITALS: BP 158/66
[2022-03-28 04:00] VITALS: BP 165/63
[2022-03-28] MEDS: MEROPENEM 1000MG in NORMAL SALINE 100ML IV SCH ×2 (04:07→15:46)
[2022-03-28] MEDS: MORPHINE SULFATE 2 MG/ML CPJ (NOT FOR IM USE) IV PRN ×3 (04:08→22:55)
[2022-03-28] MEDS: BLOOD SUGAR DIAGNOSTIC STRIP TEST SCH ×4 (06:49→21:43)
[2022-03-28 08:00] VITALS: BP 114/77
[2022-03-28] MEDS: INSULIN LISPRO 100 UNITS/ML SUBCUT SCH ×4 (08:10→21:00)
[2022-03-28 12:00] VITALS: BP 151/71
[2022-03-28] MEDS: DEXT 5%/0.9% NACL 1,000 ML IV SCH (12:20)
[2022-03-28 13:17] LABS: BASOPHILS % 0.3 % (0.0-2.0); EOSINOPHILS % 0.5 % (0.0-5.0); HEMATOCRIT. 27.7 % (42.0-52.0); HEMOGLOBIN. 8.7 g/dL (14.0-18.0); LYMPHOCYTES % 10.6 % (20.0-50.0); MEAN CORPUSCULAR HEMOGLOBIN 25.3 pg (28.0-32.0); MEAN CORPUSCULAR VOLUME 80.7 fL (80.0-94.0); MEAN PLATELET VOLUME 9.5 fl (7.4-10.4); MONOCYTES % 8.7 % (2.0-8.0); NEUTROPHILS % 79.9 % (40.0-76.0); PLATELET 246 x1000/uL (130-400); RED BLOOD CELL COUNT 3.43 mill/uL (4.7-6.1); RED CELL DISTRIBUTION WIDTH 16.9 % (11.6-14.6)
[2022-03-28 13:32] LABS: CHLORIDE 108 mEq/L (98-107)
[2022-03-28 16:00] VITALS: BP 159/61
[2022-03-28 20:00] VITALS: BP 156/65
[2022-03-28] MEDS: FAMOTIDINE 20MG TABLET PO SCH (21:45)
[2022-03-29] VITALS: BP 161/78
[2022-03-29] MEDS: DEXT 5%/0.9% NACL 1,000 ML IV SCH ×2 (01:53→15:05)
[2022-03-29 04:00] VITALS: BP 156/75
[2022-03-29] MEDS: MEROPENEM 1000MG in NORMAL SALINE 100ML IV SCH ×2 (04:14→15:09)
[2022-03-29] MEDS: MORPHINE SULFATE 2 MG/ML CPJ (NOT FOR IM USE) IV PRN ×2 (04:14→09:50)
[2022-03-29] MEDS: BLOOD SUGAR DIAGNOSTIC STRIP TEST SCH ×4 (06:27→21:05)
[2022-03-29 08:00] VITALS: BP 150/70
[2022-03-29] MEDS: INSULIN LISPRO 100 UNITS/ML SUBCUT SCH ×4 (08:10→21:00)
[2022-03-29 12:00] VITALS: BP 134/56
[2022-03-29] MEDS ORDERED: NALOXONE HCL 0.4MG/ML VIAL IV PRN (13:00)
[2022-03-29] MEDS: HYDROCODONE/ACETAMINOPHEN 5/325MG TABLET PO PRN ×2 (13:10→20:08)
[2022-03-29 16:00] VITALS: BP 151/87
[2022-03-29 20:00] VITALS: BP 163/79
[2022-03-29] MEDS: FAMOTIDINE 20MG TABLET PO SCH (20:08)
[2022-03-30] VITALS: BP 162/62
[2022-03-30] MEDS: MORPHINE SULFATE 2 MG/ML CPJ (NOT FOR IM USE) IV PRN ×2 (00:34→09:12)
[2022-03-30 04:00] VITALS: BP 168/83
[2022-03-30] MEDS: HYDROCODONE/ACETAMINOPHEN 5/325MG TABLET PO PRN ×3 (04:40→16:48)
[2022-03-30] MEDS: MEROPENEM 1000MG in NORMAL SALINE 100ML IV SCH ×3 (04:40→22:04)
[2022-03-30] MEDS: DEXT 5%/0.9% NACL 1,000 ML IV SCH ×2 (04:40→17:46)
[2022-03-30] MEDS: BLOOD SUGAR DIAGNOSTIC STRIP TEST SCH ×4 (06:53→20:09)
[2022-03-30 06:58] LABS: HEMATOCRIT. 25.7 % (42.0-52.0); HEMOGLOBIN. 8.2 g/dL (14.0-18.0); MEAN CORPUSCULAR HEMOGLOBIN 25.6 pg (28.0-32.0); MEAN CORPUSCULAR VOLUME 80.7 fL (80.0-94.0); MEAN PLATELET VOLUME 9.5 fl (7.4-10.4); PLATELET 259 x1000/uL (130-400); RED BLOOD CELL COUNT 3.19 mill/uL (4.7-6.1)
[2022-03-30 07:42] LABS: FOLIC ACID (FOLATE) SERUM 6.2 ng/mL (>5.38)
[2022-03-30 07:59] LABS: CHLORIDE 109 mEq/L (98-107)
[2022-03-30 08:00] VITALS: BP 130/72
[2022-03-30 08:04] LABS: TOTAL IRON BINDING CAPACITY 128 ug/dL (250-450)
[2022-03-30] MEDS: INSULIN LISPRO 100 UNITS/ML SUBCUT SCH ×4 (08:10→20:09)
[2022-03-30 12:00] VITALS: BP_SYST 155; BP_SYST 176; BP_DIAS 76; BP_DIAS 79
[2022-03-30 16:00] VITALS: BP 156/72
[2022-03-30] MEDS: KCL 20MEQ/100ML PREMIX 100 ML IV SCH ×2 (17:46→20:09)
[2022-03-30 18:00] LABS: PLATELET ESTIMATE NORMAL
[2022-03-30 20:00] VITALS: BP 168/77
[2022-03-30] MEDS: FAMOTIDINE 20MG TABLET PO SCH (20:09)
[2022-03-30] MEDS: MIRTAZAPINE 15MG TABLET PO SCH (20:09)
[2022-03-30] MEDS: CLONIDINE 0.1MG TABLET PO PRN (21:14)
[2022-03-31] VITALS: BP 173/83
[2022-03-31 03:55] LABS: BASOPHILS % 0.9 % (0.0-2.0); HEMATOCRIT. 26.6 % (42.0-52.0); HEMOGLOBIN. 8.6 g/dL (14.0-18.0); LYMPHOCYTES % 11.6 % (20.0-50.0); MEAN CORPUSCULAR HEMOGLOBIN 25.9 pg (28.0-32.0); MEAN CORPUSCULAR VOLUME 80.5 fL (80.0-94.0); MEAN PLATELET VOLUME 9.4 fl (7.4-10.4); MONOCYTES % 6.5 % (2.0-8.0); PLATELET 285 x1000/uL (130-400); RED BLOOD CELL COUNT 3.31 mill/uL (4.7-6.1); RED CELL DISTRIBUTION WIDTH 17.1 % (11.6-14.6)
[2022-03-31 04:00] VITALS: BP 175/82
[2022-03-31 04:16] LABS: CHLORIDE 109 mEq/L (98-107)
[2022-03-31 04:22] LABS: INR 1.2; PROTHROMBIN TIME 12.4 sec (9.6-11.0)
[2022-03-31] MEDS: CLONIDINE 0.1MG TABLET PO PRN (04:37)
[2022-03-31] MEDS: MEROPENEM 1000MG in NORMAL SALINE 100ML IV SCH ×3 (05:49→21:09)
[2022-03-31] MEDS: BLOOD SUGAR DIAGNOSTIC STRIP TEST SCH ×4 (07:13→21:54)
[2022-03-31] MEDS: INSULIN LISPRO 100 UNITS/ML SUBCUT SCH ×4 (07:30→21:00)
[2022-03-31 08:00] VITALS: BP 129/57
[2022-03-31] MEDS: DEXT 5%/0.9% NACL 1,000 ML IV SCH ×2 (09:34→21:10)
[2022-03-31 12:00] VITALS: BP 144/72
[2022-03-31 16:00] VITALS: BP 108/75
[2022-03-31] MEDS: HYDROCODONE/ACETAMINOPHEN 5/325MG TABLET PO PRN (17:40)
[2022-03-31 20:00] VITALS: BP 153/65
[2022-03-31] MEDS: MIRTAZAPINE 15MG TABLET PO SCH (21:09)
[2022-03-31] MEDS: FAMOTIDINE 20MG TABLET PO SCH (21:09)
[2022-04-01] VITALS (11 sets, daily range): BP systolic 103–161; BP diastolic 56–91
[2022-04-01] MEDS: MORPHINE SULFATE 2 MG/ML CPJ (NOT FOR IM USE) IV PRN ×3 (00:17→16:06)
[2022-04-01] MEDS: HYDROCODONE/ACETAMINOPHEN 5/325MG TABLET PO PRN ×2 (03:30→18:39)
[2022-04-01] MEDS: CLONIDINE 0.1MG TABLET PO PRN ×2 (03:44→14:38)
[2022-04-01] MEDS: BLOOD SUGAR DIAGNOSTIC STRIP TEST SCH ×4 (05:35→20:49)
[2022-04-01] MEDS: MEROPENEM 1000MG in NORMAL SALINE 100ML IV SCH ×3 (05:43→20:48)
[2022-04-01] MEDS: INSULIN LISPRO 100 UNITS/ML SUBCUT SCH ×4 (07:30→20:50)
[2022-04-01 07:56] LABS: BASOPHILS % 0.7 % (0.0-2.0); EOSINOPHILS % 1.2 % (0.0-5.0); HEMATOCRIT. 22.1 % (42.0-52.0); MEAN CORPUSCULAR HEMOGLOBIN 25.4 pg (28.0-32.0); MEAN CORPUSCULAR VOLUME 80.4 fL (80.0-94.0); MEAN PLATELET VOLUME 9.5 fl (7.4-10.4); MONOCYTES % 7.8 % (2.0-8.0); NEUTROPHILS % 79.3 % (40.0-76.0); PLATELET 237 x1000/uL (130-400); RED BLOOD CELL COUNT 2.75 mill/uL (4.7-6.1); RED CELL DISTRIBUTION WIDTH 17.3 % (11.6-14.6)
[2022-04-01 08:13] LABS: CHLORIDE 109 mEq/L (98-107)
[2022-04-01] MEDS: DEXT 5%/0.9% NACL 1,000 ML IV SCH ×2 (10:06→23:00)
[2022-04-01] MEDS: MIRTAZAPINE 15MG TABLET PO SCH (20:48)
[2022-04-01] MEDS: FAMOTIDINE 20MG TABLET PO SCH (20:48)
[2022-04-01 21:50] LABS: HEMATOCRIT 31.7 % (42.0-52.0)
[2022-04-02] VITALS: BP 157/79
[2022-04-02] MEDS: HYDROCODONE/ACETAMINOPHEN 5/325MG TABLET PO PRN ×2 (02:01→16:42)
[2022-04-02 04:00] VITALS: BP 155/64
[2022-04-02] MEDS: MEROPENEM 1000MG in NORMAL SALINE 100ML IV SCH ×3 (06:46→22:44)
[2022-04-02] MEDS: BLOOD SUGAR DIAGNOSTIC STRIP TEST SCH ×4 (06:49→21:00)
[2022-04-02] MEDS: INSULIN LISPRO 100 UNITS/ML SUBCUT SCH ×4 (06:50→21:00)
[2022-04-02 08:00] VITALS: BP 153/71
[2022-04-02 10:53] LABS: BASOPHILS % 0.8 % (0.0-2.0); EOSINOPHILS % 0.8 % (0.0-5.0); HEMATOCRIT. 31.4 % (42.0-52.0); HEMOGLOBIN. 10.1 g/dL (14.0-18.0); MEAN CORPUSCULAR HEMOGLOBIN 26.6 pg (28.0-32.0); MEAN CORPUSCULAR VOLUME 82.2 fL (80.0-94.0); MEAN PLATELET VOLUME 9.5 fl (7.4-10.4); MONOCYTES % 6.8 % (2.0-8.0); NEUTROPHILS % 81.6 % (40.0-76.0); PLATELET 260 x1000/uL (130-400); RED BLOOD CELL COUNT 3.82 mill/uL (4.7-6.1); RED CELL DISTRIBUTION WIDTH 18.3 % (11.6-14.6)
[2022-04-02 11:01] LABS: CHLORIDE 108 mEq/L (98-107)
[2022-04-02 12:00] VITALS: BP 179/78
[2022-04-02] MEDS: DEXT 5%/0.9% NACL 1,000 ML IV SCH ×2 (12:49→22:45)
[2022-04-02] MEDS: MORPHINE SULFATE 2 MG/ML CPJ (NOT FOR IM USE) IV PRN ×2 (13:32→22:13)
[2022-04-02] MEDS: KCL 20MEQ/100ML PREMIX 100 ML IV SCH ×2 (13:32→16:42)
[2022-04-02 16:00] VITALS: BP 175/92
[2022-04-02 20:00] VITALS: BP 169/81
[2022-04-02] MEDS: FAMOTIDINE 20MG TABLET PO SCH (22:13)
[2022-04-02] MEDS: MIRTAZAPINE 15MG TABLET PO SCH (22:13)
[2022-04-03] VITALS: BP 167/82
[2022-04-03 04:00] VITALS: BP 178/82
[2022-04-03] MEDS: CLONIDINE 0.1MG TABLET PO PRN ×2 (04:04→17:04)
[2022-04-03] MEDS: MEROPENEM 1000MG in NORMAL SALINE 100ML IV SCH ×3 (04:05→21:32)
[2022-04-03] MEDS: MORPHINE SULFATE 2 MG/ML CPJ (NOT FOR IM USE) IV PRN ×3 (04:05→18:08)
[2022-04-03] MEDS: BLOOD SUGAR DIAGNOSTIC STRIP TEST SCH ×4 (05:59→21:06)
[2022-04-03 06:23] LABS: INR 1.2; PROTHROMBIN TIME 12.5 sec (9.6-11.0)
[2022-04-03 06:27] LABS: BASOPHILS % 0.6 % (0.0-2.0); EOSINOPHILS % 0.4 % (0.0-5.0); HEMATOCRIT. 30.7 % (42.0-52.0); LYMPHOCYTES % 10.9 % (20.0-50.0); MEAN CORPUSCULAR HEMOGLOBIN 26.9 pg (28.0-32.0); MEAN CORPUSCULAR VOLUME 82.7 fL (80.0-94.0); MEAN PLATELET VOLUME 9.8 fl (7.4-10.4); MONOCYTES % 6.4 % (2.0-8.0); NEUTROPHILS % 81.7 % (40.0-76.0); PLATELET 294 x1000/uL (130-400); RED BLOOD CELL COUNT 3.72 mill/uL (4.7-6.1); RED CELL DISTRIBUTION WIDTH 18.4 % (11.6-14.6)
[2022-04-03 07:26] LABS: CHLORIDE 106 mEq/L (98-107)
[2022-04-03 08:00] VITALS: BP 127/76
[2022-04-03] MEDS: INSULIN LISPRO 100 UNITS/ML SUBCUT SCH ×4 (08:10→21:00)
[2022-04-03 12:00] VITALS: BP 157/77
[2022-04-03] MEDS: AMLODIPINE 5MG TABLET PO SCH (12:17)
[2022-04-03] MEDS: DEXT 5%/0.9% NACL 1,000 ML IV SCH (15:00)
[2022-04-03] MEDS ORDERED: MIDAZOLAM HCL 2 MG/2 ML VIAL ONE (15:24)
[2022-04-03] MEDS ORDERED: PROPOFOL 200MG/20ML VIAL IV ONE (15:24)
[2022-04-03] MEDS ORDERED: LIDOCAINE HCL 1% 20ML VIAL (Pyxis) INJ ONE (15:26)
[2022-04-03] MEDS ORDERED: HYDROCODONE/ACETAMINOPHEN 5/325MG TABLET PO PRN (18:00)
[2022-04-03] MEDS: METOCLOPRAMIDE HCL 10MG/2ML VIAL IV SCH (18:07)
[2022-04-03 20:00] VITALS: BP 141/67
[2022-04-03] MEDS: FAMOTIDINE 20MG TABLET PO SCH (21:05)
[2022-04-03] MEDS: MIRTAZAPINE 15MG TABLET PO SCH (21:05)
[2022-04-04] VITALS: BP 161/80
[2022-04-04] MEDS: METOCLOPRAMIDE HCL 10MG/2ML VIAL IV SCH ×4 (00:06→17:02)
[2022-04-04] MEDS: MORPHINE SULFATE 2 MG/ML CPJ (NOT FOR IM USE) IV PRN ×2 (00:07→20:45)
[2022-04-04 04:00] VITALS: BP 162/82
[2022-04-04] MEDS: DEXT 5%/0.9% NACL 1,000 ML IV SCH (04:12)
[2022-04-04] MEDS: MEROPENEM 1000MG in NORMAL SALINE 100ML IV SCH ×3 (06:01→22:36)
[2022-04-04] MEDS: CLONIDINE 0.1MG TABLET PO PRN (06:02)
[2022-04-04 07:03] LABS: BASOPHILS % 0.8 % (0.0-2.0); EOSINOPHILS % 0.3 % (0.0-5.0); HEMATOCRIT. 30.2 % (42.0-52.0); HEMOGLOBIN. 9.8 g/dL (14.0-18.0); MEAN CORPUSCULAR HEMOGLOBIN 26.9 pg (28.0-32.0); MEAN CORPUSCULAR VOLUME 82.5 fL (80.0-94.0); MEAN PLATELET VOLUME 9.7 fl (7.4-10.4); MONOCYTES % 6.7 % (2.0-8.0); NEUTROPHILS % 79.2 % (40.0-76.0); PLATELET 269 x1000/uL (130-400); RED BLOOD CELL COUNT 3.66 mill/uL (4.7-6.1); RED CELL DISTRIBUTION WIDTH 18.5 % (11.6-14.6)
[2022-04-04 07:22] LABS: CHLORIDE 104 mEq/L (98-107)
[2022-04-04] MEDS: BLOOD SUGAR DIAGNOSTIC STRIP TEST SCH ×4 (07:40→20:45)
[2022-04-04 08:00] VITALS: BP 156/76
[2022-04-04] MEDS: INSULIN LISPRO 100 UNITS/ML SUBCUT SCH ×4 (08:10→20:50)
[2022-04-04] MEDS: AMLODIPINE 5MG TABLET PO SCH ×2 (08:50→17:10)
[2022-04-04 12:00] VITALS: BP 154/72
[2022-04-04 16:00] VITALS: BP 158/77
[2022-04-04] MEDS: DOCUSATE SODIUM SUGAR FREE 100MG/10ML UDC NG SCH (17:10)
[2022-04-04 20:00] VITALS: BP 130/86
[2022-04-04] MEDS: MIRTAZAPINE 15MG TABLET PO SCH (20:45)
[2022-04-04] MEDS: FAMOTIDINE 20MG TABLET PO SCH (20:45)
[2022-04-05] VITALS: BP 135/81
[2022-04-05] MEDS: METOCLOPRAMIDE HCL 10MG/2ML VIAL IV SCH ×2 (00:23→06:09)
[2022-04-05] MEDS: MORPHINE SULFATE 2 MG/ML CPJ (NOT FOR IM USE) IV PRN ×2 (01:25→09:40)
[2022-04-05 04:00] VITALS: BP 185/94
[2022-04-05] MEDS: CLONIDINE 0.1MG TABLET PO PRN (04:15)
[2022-04-05] MEDS: MEROPENEM 1000MG in NORMAL SALINE 100ML IV SCH (06:09)
[2022-04-05 07:32] LABS: BASOPHILS % 0.4 % (0.0-2.0); EOSINOPHILS % 0.3 % (0.0-5.0); HEMATOCRIT. 31.4 % (42.0-52.0); HEMOGLOBIN. 10.2 g/dL (14.0-18.0); LYMPHOCYTES % 9.4 % (20.0-50.0); MEAN CORPUSCULAR HEMOGLOBIN 26.6 pg (28.0-32.0); MEAN CORPUSCULAR VOLUME 81.8 fL (80.0-94.0); MEAN PLATELET VOLUME 9.8 fl (7.4-10.4); MONOCYTES % 5.3 % (2.0-8.0); NEUTROPHILS % 84.6 % (40.0-76.0); PLATELET 309 x1000/uL (130-400); RED BLOOD CELL COUNT 3.84 mill/uL (4.7-6.1); RED CELL DISTRIBUTION WIDTH 18.4 % (11.6-14.6)
[2022-04-05 07:46] LABS: CHLORIDE 105 mEq/L (98-107)
[2022-04-05] MEDS: INSULIN LISPRO 100 UNITS/ML SUBCUT SCH (07:49)
[2022-04-05] MEDS: BLOOD SUGAR DIAGNOSTIC STRIP TEST SCH (07:49)
[2022-04-05 08:00] VITALS: BP 140/83
[2022-04-05] MEDS: DOCUSATE SODIUM SUGAR FREE 100MG/10ML UDC NG SCH (09:00)
[2022-04-05] MEDS ORDERED: POTASSIUM CHLORIDE 20MEQ TABLET SR PO NR (09:00)
[2022-04-05 09:02] VITALS: BP 140/83
[2022-04-05] MEDS: AMLODIPINE 5MG TABLET PO SCH (09:25)
[2022-04-05 09:40] VITALS: BP 140/83
== END 2022-04-05 11:00 | DRG 698 ==
LOC: ER 14:57 → EDBEDREQ 18:09 → EDBEDREQSVC 18:09 → EDBEDREQTM 18:09 → EDBEDREQSVC 22:36 → MICUSO 22:59 → EDBEDREQSVC 23:14 → EDBEDREQ 23:14 → EDBEDREQTM 23:14 → 7WST 03-24 03:09
PROVIDERS: ADMIT Internal Medicine; ATTEND Internal Medicine
PROC: 0T903ZZ Drainage of Right Kidney, Percutaneous Approach (ICD-10-PCS; 2022-03-24)
PROC: BT11ZZZ Fluoroscopy of Right Kidney (ICD-10-PCS; 2022-03-24)
PROC: 02HV33Z Insertion of Infusion Device into Superior Vena Cava, Percutaneous Approach (ICD-10-PCS; 2022-03-26)
PROC: B518ZZA Fluoroscopy of Superior Vena Cava, Guidance (ICD-10-PCS; 2022-03-26)
PROC: B548ZZA Ultrasonography of Superior Vena Cava, Guidance (ICD-10-PCS; 2022-03-26)
PROC: 30233N1 Transfusion of Nonautologous Red Blood Cells into Peripheral Vein, Percutaneous Approach (ICD-10-PCS; 2022-04-01)
PROC: 0DB78ZX Excision of Stomach, Pylorus, Via Natural or Artificial Opening Endoscopic, Diagnostic (ICD-10-PCS; principal; 2022-04-03)
PROC: 0DH63UZ Insertion of Feeding Device into Stomach, Percutaneous Approach (ICD-10-PCS; 2022-04-03)
DX: T83.022A Displacement of nephrostomy catheter, initial encounter (principal); A41.9 Sepsis, unspecified organism; R65.20 Severe sepsis without septic shock; N17.9 Acute kidney failure, unspecified; N13.6 Pyonephrosis; E87.1 Hypo-osmolality and hyponatremia; E46 Unspecified protein-calorie malnutrition; E87.2 Acidosis; Z16.12 Extended spectrum beta lactamase (ESBL) resistance; C61 Malignant neoplasm of prostate; E11.9 Type 2 diabetes mellitus without complications; I11.0 Hypertensive heart disease with heart failure; N13.9 Obstructive and reflux uropathy, unspecified; N32.9 Bladder disorder, unspecified; E87.5 Hyperkalemia; D64.9 Anemia, unspecified; C67.9 Malignant neoplasm of bladder, unspecified; E88.09 Other disorders of plasma-protein metabolism, not elsewhere classified; R13.10 Dysphagia, unspecified; K44.9 Diaphragmatic hernia without obstruction or gangrene; K29.70 Gastritis, unspecified, without bleeding; F32.A Depression, unspecified; I50.9 Heart failure, unspecified; G47.00 Insomnia, unspecified; N40.0 Benign prostatic hyperplasia without lower urinary tract symptoms; Y73.2 Prosthetic and other implants, materials and accessory gastroenterology and urology devices associated with adverse incidents; E87.6 Hypokalemia; Z20.822 Contact with and (suspected) exposure to COVID-19; Z66 Do not resuscitate; Z85.46 Personal history of malignant neoplasm of prostate; Z79.899 Other long term (current) drug therapy; Z79.891 Long term (current) use of opiate analgesic; Z79.84 Long term (current) use of oral hypoglycemic drugs; Z95.1 Presence of aortocoronary bypass graft; Y92.89 Other specified places as the place of occurrence of the external cause; Z86.718 Personal history of other venous thrombosis and embolism; Z95.828 Presence of other vascular implants and grafts; Z68.20 Body mass index [BMI] 20.0-20.9, adult; Z85.51 Personal history of malignant neoplasm of bladder; Z90.5 Acquired absence of kidney; B96.89 Other specified bacterial agents as the cause of diseases classified elsewhere
CPT/HCPCS: 36415; 36573; 50432; 71045; 74176; 80048; 80053; 81003; 82607; 82728; 82746; 82962; 83540; 83550; 83605; 83735; 84132; 84145; 84484; 85014; 85018; 85025; 85044; 86850; 86900; 86920; 87077; 87186; 87426; 88305; 93005; 93306; 97110; 97116; 97162; 97530; 99152; 99153; 99291; C1725; C1729; C1760; C1769; C9803; J0696; J1815; J2020; J2185; J2250; J2270; J2543; J2704; J2765; J3010; J3480; J3490; J7030; J7042; J7050; J7060; P9016; Q9967; G0500